=== PATIENT | female | born 1975 | race Caucasian/White ===

== ENCOUNTER 2024-05-28 10:55 | Outpatient (CLI) | payer OTHER | END 2024-05-28 10:56 | disposition home or self-care (01) | LOC: CSHMAMMO 10:55 | PROVIDERS: ATTEND Nurse Practitioner Family | DX: Z12.31 Encounter for screening mammogram for malignant neoplasm of breast (principal); N64.89 Other specified disorders of breast | CPT/HCPCS: 77063; 77067 ==

== ENCOUNTER 2024-06-13 13:52 | Outpatient (CLI) | payer OTHER | END 2024-06-13 13:53 | disposition home or self-care (01) | LOC: CSHMAMMO 13:52 | PROVIDERS: ATTEND Nurse Practitioner Family | DX: N64.89 Other specified disorders of breast (principal); N63.25 Unspecified lump in the left breast, overlapping quadrants; N60.02 Solitary cyst of left breast | CPT/HCPCS: G0279 ==

== ENCOUNTER → 2024-06-20 | Day surgery (SDC) | payer OTHER | LOC: CSHULT 12:37 | PROVIDERS: ATTEND Urology | PROC: 0HBU3ZX Excision of Left Breast, Percutaneous Approach, Diagnostic (ICD-10-PCS; principal; 2024-06-20) | DX: N64.89 Other specified disorders of breast (principal); R92.0 Mammographic microcalcification found on diagnostic imaging of breast | CPT/HCPCS: 19083; 88305 ==

== ENCOUNTER 2024-07-23 10:26 | Outpatient (CLI) | payer OTHER | END 2024-07-23 10:27 | disposition home or self-care (01) | LOC: CSHLAB 10:26 | PROVIDERS: ATTEND Surgery | DX: Z01.818 Encounter for other preprocedural examination (principal); R92.8 Other abnormal and inconclusive findings on diagnostic imaging of breast | CPT/HCPCS: 93005; 93010 ==

== ENCOUNTER 2024-07-31 06:01 | Day surgery (SDC) | payer OTHER ==
[2024-07-23 10:53] VITALS: BMI 37.1
[2024-07-31] MEDS ORDERED: Lidocaine 2% PF 5 ML VIAL ONE (06:54)
[2024-07-31] MEDS ORDERED: PROPOFOL 20 ML ONE (06:54)
[2024-07-31] MEDS ORDERED: fentaNYL 50 mcg/mL 1 mL Vial ONE ×2 (06:54→07:59)
[2024-07-31] MEDS ORDERED: Bupivacaine HCl 0.5%/Epinephrine 1:200,000/PF 30 ml Vial ONE (06:56)
[2024-07-31] MEDS ORDERED: Dexamethasone 4 mg/ml Vial ONE (07:00)
[2024-07-31] MEDS ORDERED: Promethazine HCl 25 MG/ML VIAL ONE (07:00)
[2024-07-31] MEDS ORDERED: Dexmedetomidine 200 MCG/2 ML VIAL ONE (07:00)
[2024-07-31] MEDS ORDERED: Ondansetron PF 4 MG/2 ML Vial ONE (07:00)
[2024-07-31] MEDS ORDERED: CEFAZOLIN 2 GM VIAL ONE (07:16)
[2024-07-31] MEDS ORDERED: ePHEDrine Sulfate 50 MG/10 ML VIAL ONE (07:43)
== END 2024-07-31 09:40 | disposition home or self-care (01) ==
LOC: CSHSDC 06:01
PROVIDERS: ATTEND Surgery
PROC: 0HBU0ZZ Excision of Left Breast, Open Approach (ICD-10-PCS; principal; 2024-07-31)
DX: N60.22 Fibroadenosis of left breast (principal); N62 Hypertrophy of breast; N60.12 Diffuse cystic mastopathy of left breast; N60.82 Other benign mammary dysplasias of left breast; R92.0 Mammographic microcalcification found on diagnostic imaging of breast; I10 Essential (primary) hypertension; Z87.59 Personal history of other complications of pregnancy, childbirth and the puerperium; Z90.710 Acquired absence of both cervix and uterus; Z88.5 Allergy status to narcotic agent; Z88.2 Allergy status to sulfonamides; Z79.890 Hormone replacement therapy; Z79.899 Other long term (current) drug therapy
CPT/HCPCS: 76098; 88307; 88341; 88342; C1713; J1100; J2405; J2550; J2704; J3010